=== PATIENT | male | born 1970 | race Caucasian/White ===

== ENCOUNTER 2018-01-09 16:22 | Emergency (ER) | payer BC ==
[2018-01-09 17:08] VITALS: BP 126/90
--- NOTE | 2018-01-09 17:45 | UC ---
Skin Complaint HPI - HPI Summary HPI Summary: Patient comes to urgent care today with chief complaint of itchy red area on right forearm and right thigh. Area base is red with-based vesicles. Patient is unsure what he may benefit exposed to he does notice poison [place] on his property and he was out doing yardwork. Patient has done nothing for this - History of Current Complaint Chief Complaint: UCRash Time Seen by Provider: 01/09/18 17:37 Stated Complaint: RASH Hx Obtained From: Patient Onset/Duration: Sudden Onset, Still Present Skin Exposure Onset/Duration: Days Ago Timing: Constant Pain Intensity: 0 Location: Discrete Character: Pruritus, Redness Aggravating Factor(s): Nothing Alleviating Factor(s): Nothing Associated Signs & Symptoms: Positive: Rash Related History: Possible Reaction to: Environmental Exposure - Allergy/Home Medications Allergies/Adverse Reactions: Allergies Allergy/AdvReac Type Severity Reaction Status Date / Time Penicillins Allergy Rash Verified 01/09/18 17:08 Review of Systems Constitutional: Negative Skin: Rash - right thigh and right inner thigh Eyes: Negative ENT: Negative Respiratory: Negative Cardiovascular: Negative Gastrointestinal: Negative Genitourinary: Negative Motor: Negative Neurovascular: Negative Musculoskeletal: Negative Neurological: Negative Psychological: Negative Is Patient Immunocompromised?: No All Other Systems Reviewed And Are Negative: Yes PMH/Surg Hx/FS Hx/Imm Hx Previously Healthy: Yes - Surgical History Surgical History: None - Family History Known Family History: Positive: None - Social History Occupation: Employed Full-time Lives: With Family Alcohol Use: None Substance Use Type: None Smoking Status (MU): Never Smoked Tobacco Physical Exam Triage Information Reviewed: Yes Appearance: Well-Appearing, No Pain Distress, Well-Nourished Vital Signs: Initial Vital Signs Temp 98.7 F 01/09/18 17:06 Pulse 74 01/09/18 17:06 Resp 12 01/09/18 17:06 BP 126/90 01/09/18 17:06 Pulse Ox 98 01/09/18 17:06 Vital Signs Reviewed: Yes Eye Exam: Normal Eyes: Positive: Conjunctiva Clear ENT Exam: Normal ENT: Positive: Normal ENT inspection, Hearing grossly normal. Negative: Trismus , Muffled voice, Hoarse voice Dental Exam: Normal Neck exam: Normal Neck: Positive: Supple, Nontender Respiratory Exam: Normal Respiratory: Positive: Chest non-tender, No respiratory distress, No accessory muscle use Cardiovascular Exam: Normal Cardiovascular: Positive: RRR, Pulses Normal, Brisk Capillary Refill Musculoskeletal Exam: Normal Musculoskeletal: Positive: Strength Intact, ROM Intact, No Edema Neurological Exam: Normal Neurological: Positive: Alert, Muscle Tone Normal Psychological Exam: Normal Psychological: Positive: Normal Response To Family Skin Exam: Other Skin: Positive: rashes - 1. 4 cm diameter red area with vesicles no drainage and some scattered satalitte areas, also a 4 x6 cm area on distal right forarm Course/Dx - Course Course Of Treatment: Cool compresses, prednisone, benadryl, follow with pcp prn - Diagnoses Provider Diagnoses: contact dermititis, right forearm and right thigh Discharge - Sign-Out/Discharge Documenting (check all that apply): Patient Departure All imaging exams completed and their final reports reviewed: No Studies - Discharge Plan Condition: Stable Disposition: HOME Prescriptions: predniSONE TAB* [Deltasone 10 MG TAB*] 10 mg PO DAILY #26 tab Patient Education Materials: Diphenhydramine (By mouth), Hydrocortisone (On the skin), Contact Dermatitis (ED), Cold Compress or Soak (ED) Referrals: Florence Hawthorne MD [Primary Care Provider] - If Needed - Billing Disposition and Condition Condition: STABLE Disposition: Home
== END 2018-01-09 17:57 | disposition home or self-care (01) ==
LOC: UCEAST 16:22
DX: L25.9 Unspecified contact dermatitis, unspecified cause (principal); Z88.0 Allergy status to penicillin
CPT/HCPCS: 99212; G0463